=== PATIENT | male | born 1990 | race Caucasian/White ===

== ENCOUNTER 2018-03-13 07:25 | Emergency (ER) | payer OTHER, SELFPAY ==
--- NOTE | 2018-03-13 07:30 | ED_ITS ---
HPI - Back Pain/Injury General Chief Complaint: Back Pain/Injury Stated Complaint: BACK INJURY/RIB PAIN Time Seen by Provider: 03/13/18 07:29 Source: patient Mode of arrival: ambulatory Limitations: no limitations History of Present Illness HPI Narrative: Patient is a 27-year-old male here for evaluation of right-sided mid back/flank pain. He states that he thinks that it occurred last evening when he fell and hit his right side on the edge of the couch. He states he was drinking at the time. He arrives this morning with pain to his right flank. Related Data Home Medications Medication Instructions Recorded Confirmed [DAYQUIL] PO PRN PRN #0 05/21/17 Previous Rx's Medication Instructions Recorded oseltamivir [Tamiflu] 75 mg PO BID #9 cap 05/21/17 Allergies Allergy/AdvReac Type Severity Reaction Status Date / Time No Known Drug Allergies Allergy Verified 03/13/18 07:38 Review of Systems Constitutional Denies fever(s) and Denies frequent falls ENT Ears, Nose, Mouth, and Throat: Denies vertigo Cardiovascular Reports chest pain (Right-sided lower chest) and Denies dyspnea Respiratory Denies dyspnea Musculoskeletal Reports back pain (Right midback), Denies myalgias, Denies deformity and Denies arthralgias Integumentary/Breasts Denies rash Neurologic Denies vertigo and Denies frequent falls Hematologic/Lymphatic Denies easy bleeding and Denies easy bruising PFSH Medical History Healthy adult (Acute) Surgical History No pertinent past surgical history (Acute) Social History lives independently: Yes Smoking Status: Current every day smoker Exam Initial Vital Signs Initial Vital Signs: Vital Signs Temperature 98.6 F 03/13/18 07:34 Pulse Rate 96 H 03/13/18 07:34 Respiratory Rate 18 03/13/18 07:34 Blood Pressure 124/81 03/13/18 07:34 Pulse Oximetry 99 03/13/18 07:34 Const General: cooperative, well developed, well groomed and No acute distress Orientation: alert, awake and oriented x3 HENMT Head: normal to inspection and normocephalic Resp Effort & Inspection: normal respiratory effort Auscultation: clear to auscultation bilaterally Cardio Rate: regular rate Rhythm: regular rhythm GI Inspection: non-distended Palpation: soft, No firm and No tender Back/Spine/Pelvis Other: Patient with tenderness to palpation over the right lower ribs post posteriorly and along the right flank anterior. No crepitus felt. Skin Lesions: no lesions Rashes: no rashes Neuro General: alert, awake and oriented x3 Extrem General: normal to inspection, capillary refill normal and No no pedal edema Right upper extremity: normal to inspection Psych Appearance: grossly normal and well kempt Course Orders Ordered: ED Orders 03/13/18 07:37 XR ribs RT min 3V w CXR1V Stat Vital Signs - 8 hr 03/13/18 07:34 Temperature 98.6 F Pulse Rate 96 H Respiratory Rate 18 Blood Pressure 124/81 Pulse Oximetry 99 MDM - Back Pain/Injury Imaging Data Rib series: Radiologist's impression: PROCEDURE: XR RIBS RT MIN 3V W CXR 1V INDICATIONS: Right-sided rib pain after injury last evening TECHNIQUE: 2 views of the right ribs were acquired, along with a single view chest. COMPARISON: None. FINDINGS: Surgical changes and devices: None. Bones and chest wall: No fractures or dislocations. No suspicious bony lesions. Overlying soft tissues appear unremarkable. Lungs and pleura: No pleural effusions or pneumothorax. Lungs appear clear. Mediastinum: Mediastinal contours appear normal. Heart size is normal. IMPRESSION: No acute fracture. No osseous lesion. If clinical suspicion and/or symptoms persist, further assessment with repeat plainfilms, or advanced imaging (e.g., CT or bone scan) may be helpful for further assessment. Dictated by: Natan Le M.D. on 03/13/2018 at 8:29 Approved by: Natan Le M.D. on 03/13/2018 at 8:30 [facility] Narrative Medical decision making narrative: Patient without respiratory distress. Did admit to drinking last evening. No fractures were noted on the x-ray. Discussed treatment to include Tylenol and Motrin. Offered a work note for today but patient did not want this. He was asking for a work note for the next several days and did next week. I informed him he needed to contact his primary care doctor for this. He was given return precautions. He expressed understanding. Discharge Plan Departure Patient Disposition: Home Clinical Impression: Contusion of rib on right side Instructions: DI for Rib Contusion, How To Perform RICE (Rest, Ice, Compress, Elevate) Activity Restrictions/Additional Instructions: I recommend that you take anti-inflammatories such as Motrin/ibuprofen or Naprosyn. You can also take Tylenol in addition to this. There were no fractures noted on the x-rays today. Return to the emergency department for any fevers, problems breathing or any other new symptoms. Prescriptions: No Action [DAYQUIL] PO PRN PRNQty: 0 RF: 0 oseltamivir [Tamiflu] 75 MG capsule 75 mg PO BID Qty: 9 RF: 0
[2018-03-13 07:34] VITALS: BP 124/81; PULSE 96; RESP 18; TEMP 37; O2SAT 99
--- NOTE | 2018-03-13 07:37 | DI.RAD.S_ITS ---
PROCEDURE: XR RIBS RT MIN 3V W CXR 1V INDICATIONS: Right-sided rib pain after injury last evening TECHNIQUE: 2 views of the right ribs were acquired, along with a single view chest. COMPARISON: None. FINDINGS: Surgical changes and devices: None. Bones and chest wall: No fractures or dislocations. No suspicious bony lesions. Overlying soft tissues appear unremarkable. Lungs and pleura: No pleural effusions or pneumothorax. Lungs appear clear. Mediastinum: Mediastinal contours appear normal. Heart size is normal. IMPRESSION: No acute fracture. No osseous lesion. If clinical suspicion and/or symptoms persist, further assessment with repeat plainfilms, or advanced imaging (e.g., CT or bone scan) may be helpful for further assessment. Dictated by: Natan Le M.D. on 03/13/2018 at 8:29 Approved by: Natan Le M.D. on 03/13/2018 at 8:30
[2018-03-13 08:56] VITALS: BP 117/85; PULSE 76; RESP 16; O2SAT 97
== END 2018-03-13 08:56 | disposition home or self-care (01) ==
PROVIDERS: Emergency Provider Emergency Medicine
DX: S20.211A Contusion of right front wall of thorax, initial encounter (principal); W18.30XA Fall on same level, unspecified, initial encounter
CPT/HCPCS: 71101; 99282; 99283

== ENCOUNTER 2023-12-22 12:57 | Emergency (ER) | payer OTHER, MEDICAID, SELFPAY ==
[2023-12-22 13:11] VITALS: BP 137/85; PULSE 98; RESP 16; TEMP 37.2; O2SAT 98; BMI 27.8
--- NOTE | 2023-12-22 13:19 | ED.SKABFB ---
HPI - Skin/Abscess/Foreign Bdy <Jose D Osborne PA-C - Last Filed: 12/22/23 16:41> General Chief complaint: Skin/Abscess/Foreign Body Stated complaint: abcess on left arm Time Seen by Provider: 12/22/23 13:12 Source: patient Mode of arrival: Ambulatory Limitations: no limitations History of Present Illness HPI narrative: 33-year-old male who is an IVDU presents to the ED with an abscess in the left antecubital fossa. Patient states he was injecting methamphetamine a few days ago, following which the wound developed. Patient states that he has had this happened before, however it spontaneously resolved. Patient denies that there is any possibility of a needle left behind in the wound. No fever, chills, nausea, vomiting. Related Data Home Medications Medication Instructions Recorded Confirmed [DAYQUIL] PO PRN PRN ##0 05/21/17 Previous Rx's Medication Instructions Recorded oseltamivir 75 mg capsule (Tamiflu) 75 mg PO BID #9 caps 05/21/17 cephalexin 500 mg capsule 500 mg PO TID 5 days #15 caps 12/22/23 sulfamethoxazole 800 1 tab PO Q12H 10 days #20 tabs 12/22/23 mg-trimethoprim 160 mg tablet (Bactrim DS) Allergies Allergy/AdvReac Type Severity Reaction Status Date / Time No Known Drug Allergies Allergy Verified 12/22/23 13:14 Review of Systems <Jose D Osborne PA-C - Last Filed: 12/22/23 16:41> Constitutional Constitutional: Denies chills, Denies fatigue, Denies fever(s), Denies frequent falls, Denies lethargy and Denies weakness Eyes Eyes: Denies change in vision, Denies eye discharge, Denies irritation and Denies loss of vision ENT Ears, Nose, Mouth, and Throat: Denies change in voice, Denies dizziness, Denies neck pain, Denies sore throat and Denies throat swelling Cardiovascular Cardiovascular: Denies chest pain, Denies irregular heart rhythm, Denies lightheadedness, Denies palpitations, Denies dyspnea, Denies dyspnea on exertion and Denies orthopnea Respiratory Respiratory: Denies cough, Denies dyspnea, Denies dyspnea on exertion and Denies wheezing Gastrointestinal Gastrointestinal: Denies abdominal pain, Denies change in bowel habits, Denies diarrhea, Denies nausea and Denies vomiting Musculoskeletal Musculoskeletal: Denies neck pain and Denies numbness Integumentary/Breasts Skin/Breast: Denies pruritus, Denies erythema, Denies rash and Reports wounds Neurologic Neurologic: Denies behavioral changes, Denies confusion, Denies dizziness, Denies frequent falls, Denies loss of vision, Denies numbness and Denies weakness Psychiatric Psychiatric: Denies anxiety, Denies behavioral changes, Denies confusion, Denies depression, Denies homicidal ideation and Denies suicidal ideation Endocrine Endocrine: Denies fatigue, Denies flushing and Denies palpitations Hematologic/Lymphatic Hematologic/Lymphatic: Denies easy bruising Allergic/Immunologic Allergic/Immunologic: Denies urticaria, Denies throat swelling and Denies wheezing Patient History <Jose D Osborne PA-C - Last Filed: 12/22/23 16:41> Medical History Healthy adult Surgical History No pertinent past surgical history Social History lives independently: Yes Smoking Status: Current every day smoker Smoking Status: Current every day smoker tobacco type: vaping alcohol intake frequency: 0-2 drinks per day Substance Use Type: marijuana and methamphetamine Exam <Jose D Osborne PA-C - Last Filed: 12/22/23 16:41> Narrative Exam Narrative: Const General:?cooperative, healthy appearing and comfortable [facility] Head:?normal to inspection Ears:?hearing grossly normal bilaterally Nose:?external nose normal Face and sinus:?normal facial exam and sinuses nontender Mouth:?oral mucosae normal Throat:?posterior oropharynx normal Eyes General:?appearance normal, both eyes and all related structures Neck Neck:?normal visual inspection and no lymphadenopathy noted Resp Effort & Inspection:?normal respiratory effort Auscultation:?clear to auscultation bilaterally Cardio Rate:?regular rate Rhythm:?regular rhythm Integumentary There is a 8 cm circular lesion proximal to the left antecubital fossa, with induration and fluctuance, tenderness, erythema. Consistent with an abscess. FROM. Neurovascularly intact. Neuro General:?patient alert, patient awake and patient oriented x3 Initial Vital Signs Initial Vital Signs: Vital Signs Temperature 99 F 12/22/23 13:11 Pulse Rate 98 H 12/22/23 13:11 Respiratory Rate 16 12/22/23 13:11 Blood Pressure 137/85 12/22/23 13:11 Pulse Oximetry 98 12/22/23 13:11 Oxygen Delivery Method Room Air 12/22/23 13:11 <DO Tara Engel Last Filed: 12/22/23 18:21> Initial Vital Signs Initial Vital Signs: Vital Signs Temperature 99 F 12/22/23 13:11 Pulse Rate 98 H 12/22/23 13:11 Respiratory Rate 16 12/22/23 13:11 Blood Pressure 137/85 12/22/23 13:11 Pulse Oximetry 98 12/22/23 13:11 Oxygen Delivery Method Room Air 12/22/23 13:11 Procedures <Jose D Osborne PA-C - Last Filed: 12/22/23 16:41> Abscess I/D I&D #1: Site: upper extremity Side (if applicable): left Local Anesthetic: lidocaine 1% and with epi Amount of anesthesia used (mL): 3 Technique: incised with #11 blade Packing used?: iodoform Course <Jose D Osborne PA-C - Last Filed: 12/22/23 16:41> Orders Ordered: ED Orders 12/22/23 13:26 CT UE LT w con Stat 12/22/23 13:35 CBC Auto Diff [Complete Blood Count AUTO DIFF] Stat CMP [Comprehensive Metabolic Panel] Stat Vital Signs Vital signs: Vital Signs - 8 hr 12/22/23 13:11 12/22/23 16:01 Temperature 99 F Pulse Rate 98 H 66 Respiratory Rate 16 18 Blood Pressure 137/85 116/63 Pulse Oximetry 98 100 Oxygen Delivery Method Room Air Room Air <Ynes Wilson DO - Last Filed: 12/22/23 18:21> Orders Ordered: ED Orders 12/22/23 13:26 CT UE LT w con Stat 12/22/23 13:35 CBC Auto Diff [Complete Blood Count AUTO DIFF] Stat CMP [Comprehensive Metabolic Panel] Stat Vital Signs Vital signs: Vital Signs - 8 hr 12/22/23 13:11 12/22/23 16:01 Temperature 99 F Pulse Rate 98 H 66 Respiratory Rate 16 18 Blood Pressure 137/85 116/63 Pulse Oximetry 98 100 Oxygen Delivery Method Room Air Room Air MDM - Skin/Abscess/Foreign Bdy <Jose D Osborne PA-C - Last Filed: 12/22/23 16:41> Lab Data 12/22/23 13:35 12/22/23 13:35 Labs: Lab Results 12/22/23 Range/Units 13:35 WBC 6.2 (4.5-11.0) X10^3/uL RBC 4.27 L (4.5-5.9) X10^6/uL Hgb 12.6 L (13.5-17.5) g/dL Hct 36.6 L (41-53) % MCV 85.8 (80-100) fL MCH 29.5 (26-34) PG MCHC 34.4 (30-36) % RDW 13.3 (11.6-14.8) % Plt Count 183 (150-400) X10^3/uL Neut % (Auto) 65.6 (50-75) % Lymph % (Auto) 16.3 L (25-40) % [place] % (Auto) 9.5 (3-14) % Eos % (Auto) 7.8 H (2-4) % Baso % (Auto) 0.8 (0-2) % Neut # (Auto) 4100 (6022-7826) /uL Lymph # (Auto) 1000 L (3658-3033) /uL [place] # (Auto) 600 (0-900) /uL Eos # (Auto) 500 H (0-450) /uL Baso # (Auto) 0 (0-100) /uL Sodium 139 (137-145) mmol/L Potassium 4.0 (3.4-5.1) mmol/L Chloride 107 (98-107) mmol/L Carbon Dioxide 25 (22-32) mmol/L BUN 14 (9-20) mg/dL Creatinine 0.79 (0.66-1.25) mg/dL Estimated GFR > 60 (>60) mL/min BUN/Creatinine Ratio 17.7 (6-22) Glucose 78 (70-100) mg/dL Calcium 9.4 (8.4-10.2) mg/dL Total Bilirubin 0.5 (0.2-1.3) mg/dL AST 27 (17-59) IU/L ALT 23 (<50) IU/L Alkaline Phosphatase 66 (38-126) U/L Total Protein 7.3 (6.3-8.2) g/dL Albumin 4.2 (3.5-5.0) g/dL Globulin 3.1 (1.7-4.1) g/dL Albumin/Globulin Ratio 1.4 (1.0-2.8) MDM Narrative Medical decision making narrative: 33-year-old male who is an IVDU presents to the ED with an abscess in the left antecubital fossa. Concern for abscess versus retained foreign body versus other. Will obtain labs, CT. Will reassess. Labs unremarkable. CT shows moderate focal edema in the antecubital fossa subcutaneous region measuring 3.2 cm. No definite metallic foreign body. No osseous erosion. There is some enema seen around the adjacent wanes, without definite occluding thrombus. Abscess incised and drained, packed with iodoform packing. Recommend follow-up with PCP/walk-in clinic/ED in 24-48 hours for recheck and further treatment. Antibiotics prescribed. ED return precautions were discussed with patient. Patient verbalized understanding. Medical records reviewed: Yes <Ynes Wilson, - Last Filed: 12/22/23 18:21> Lab Data Labs: Lab Results 12/22/23 Range/Units 13:35 WBC 6.2 (4.5-11.0) X10^3/uL RBC 4.27 L (4.5-5.9) X10^6/uL Hgb 12.6 L (13.5-17.5) g/dL Hct 36.6 L (41-53) % MCV 85.8 (80-100) fL MCH 29.5 (26-34) PG MCHC 34.4 (30-36) % RDW 13.3 (11.6-14.8) % Plt Count 183 (150-400) X10^3/uL Neut % (Auto) 65.6 (50-75) % Lymph % (Auto) 16.3 L (25-40) % [place] % (Auto) 9.5 (3-14) % Eos % (Auto) 7.8 H (2-4) % Baso % (Auto) 0.8 (0-2) % Neut # (Auto) 4100 (1558-4669) /uL Lymph # (Auto) 1000 L (1363-5428) /uL [place] # (Auto) 600 (0-900) /uL Eos # (Auto) 500 H (0-450) /uL Baso # (Auto) 0 (0-100) /uL Sodium 139 (137-145) mmol/L Potassium 4.0 (3.4-5.1) mmol/L Chloride 107 (98-107) mmol/L Carbon Dioxide 25 (22-32) mmol/L BUN 14 (9-20) mg/dL Creatinine 0.79 (0.66-1.25) mg/dL Estimated GFR > 60 (>60) mL/min BUN/Creatinine Ratio 17.7 (6-22) Glucose 78 (70-100) mg/dL Calcium 9.4 (8.4-10.2) mg/dL Total Bilirubin 0.5 (0.2-1.3) mg/dL AST 27 (17-59) IU/L ALT 23 (<50) IU/L Alkaline Phosphatase 66 (38-126) U/L Total Protein 7.3 (6.3-8.2) g/dL Albumin 4.2 (3.5-5.0) g/dL Globulin 3.1 (1.7-4.1) g/dL Albumin/Globulin Ratio 1.4 (1.0-2.8) Discharge Plan Departure Patient Disposition: Home Clinical Impression: Abscess Instructions: DI for Incision and Drainage of a Skin Abscess Activity Restrictions/Additional Instructions: You were evaluated in the ED today for an abscess in your left arm. Your abscess was incised and drained. A wick has been left in to aid continued draining of pus. It is important that you follow-up at a walk-in clinic, your PCP's office or return to the ED for a recheck in 24-48 hours and possible replacement of the week if your abscess is still draining. You have been prescribed antibiotics. Please take those as prescribed. Please refrain from further injection use to avoid further infections. Return to the ED if you have worsening symptoms, fever, chills, persistent vomiting. Prescriptions: New sulfamethoxazole-trimethoprim [Bactrim DS] 800-160 mg tablet 1 tab PO Q12H 10 Days Qty: 20 0RF cephalexin 500 mg capsule 500 mg PO TID 5 Days Qty: 15 0RF No Action [DAYQUIL] PO PRN PRNQty: 0 oseltamivir [Tamiflu] 75 MG capsule 75 mg PO BID Qty: 9 0RF Referrals: Miscellaneous,Doctor, MD [Primary Care Provider] - Stand Alone Forms: Patient Portal/API ED Sign-out <Ynes Wilson DO - Last Filed: 12/22/23 18:21> Cosign ED Attending Cosxaviature Attestation: I was immediately available in the department for consultation.
--- NOTE | 2023-12-22 13:26 | DI.CT.S_ITS ---
PROCEDURE: CT UE LT W CON INDICATIONS: AC abscess; ivdu; ?foreign body TECHNIQUE: After the administration of intravenous contrast, 3 mm axial sections acquired of the left upper extremity , with coronal and sagittal reformats. COMPARISON: None. FINDINGS: Image quality: Diagnostic Bones: No acute displaced fracture. No definite osseous erosions Soft tissues: Moderate focal edema measuring about 3.2 centimeters in the antecubital fossa. This is subcutaneous. Some edema is seen around the adjacent veins, without a definite occluding thrombus. There is no metallic body identified. Prominent adjacent lymph nodes may be reactive. IMPRESSION: Moderate focal edema in the antecubital fossa subcutaneous region measuring 3.2 centimeters. No definite metallic foreign body. No osseous erosion. Consider ultrasound if there is concern for superficial thrombophlebitis. Dictated by: Slade Mcclelland M.D. on 12/22/2023 at 14:54 Approved by: Slade Mcclelland M.D. on 12/22/2023 at 14:58
[2023-12-22 13:49] LABS: Add Manual Diff / Slide Review NO; Basophils Absolute Auto 0 /uL (0-100); Basophils Percent Auto 0.8 % (0-2); Eosinophils Absolute Auto 500 /uL (0-450); Eosinophils Percent Auto 7.8 % (2-4); Hematocrit 36.6 % (41-53); Hemoglobin 12.6 g/dL (13.5-17.5); Lymphocytes Absolute Auto 1000 /uL (1100-4500); Lymphocytes Percent Auto 16.3 % (25-40); Mean Corpuscular HGB Conc 34.4 % (30-36); Mean Corpuscular Hemoglobin 29.5 PG (26-34); Mean Corpuscular Volume 85.8 fL (80-100); Monocytes Absolute Auto 600 /uL (0-900); Monocytes Percent Auto 9.5 % (3-14); Neutrophils Absolute Auto 4100 /uL (1500-7000); Neutrophils Percent Auto 65.6 % (50-75); Platelet Count 183 X10^3/uL (150-400); Red Blood Cell Count 4.27 X10^6/uL (4.5-5.9); Red Cell Distribution Width 13.3 % (11.6-14.8); White Blood Cell Count 6.2 X10^3/uL (4.5-11.0)
[2023-12-22 14:04] LABS: Alanine Aminotransferase 23 IU/L (<50); Albumin 4.2 g/dL (3.5-5.0); Albumin Globulin Ratio 1.4 (1.0-2.8); Alkaline Phosphatase 66 U/L (38-126); Aspartate Aminotransferase 27 IU/L (17-59); BUN Creatinine Ratio 17.7 (6-22); Bilirubin Total 0.5 mg/dL (0.2-1.3); Blood Urea Nitrogen 14 mg/dL (9-20); Calcium 9.4 mg/dL (8.4-10.2); Carbon Dioxide 25 mmol/L (22-32); Chloride 107 mmol/L (98-107); Estimated Glomerular Filt Rate > 60 mL/min (>60); Globulin 3.1 g/dL (1.7-4.1); Glucose 78 mg/dL (70-100); HEMOLYSIS < 15 (0-50); Sodium 139 mmol/L (137-145); Total Protein 7.3 g/dL (6.3-8.2)
[2023-12-22 16:01] VITALS: BP 116/63; PULSE 66; RESP 18; O2SAT 100
== END 2023-12-22 16:14 | disposition home or self-care (01) ==
PROVIDERS: Emergency Provider Student in an Organized Health Care Education/Training Program
DX: L02.414 Cutaneous abscess of left upper limb (principal); R79.89 Other specified abnormal findings of blood chemistry
CPT/HCPCS: 10060; 36415; 73201; 80053; 85025; 99284; Q9967

== ENCOUNTER 2024-02-19 12:57 | Emergency (ER) | payer OTHER, MEDICAID, SELFPAY ==
--- NOTE | 2024-02-19 13:09 | DI.RAD.S_ITS ---
PROCEDURE: XR CHEST 2V INDICATIONS: cough TECHNIQUE: 2 views of the chest were acquired. COMPARISON: CR, XR RIBS RT MIN 3V W CXR 1V, 03/13/2018, 7:44. FINDINGS: Surgical changes and devices: None. Lungs and pleura: Lungs are abnormal with a patchy alveolar infiltration pattern but without dense consolidative pneumonia. No pleural effusions or pneumothorax. Mediastinum: Mediastinal contours are normal. Heart size is normal. Bones and chest wall: No suspicious bony abnormalities. Soft tissues appear unremarkable. IMPRESSION: Patchy bilateral alveolar infiltration pattern, potentially a manifestation of atypical/viral pneumonia. Dictated by: Felipe Godoy M.D. on 02/19/2024 at 13:48 Approved by: Felipe Godoy M.D. on 02/19/2024 at 13:49
[2024-02-19 13:14] VITALS: BP 128/76; PULSE 96; RESP 16; TEMP 36.6; O2SAT 94; BMI 28.7
--- NOTE | 2024-02-19 13:51 | ED.URI ---
HPI - URI/Sore Throat <Paola Rivers PA-C - Last Filed: 02/19/24 15:44> General Chief Complaint: Upper Respiratory Symptoms Stated Complaint: headache, hearing problem, green phlem Time Seen by Provider: 02/19/24 13:27 Source: patient Mode of arrival: Ambulatory History of Present Illness HPI Narrative: Mr. You is a pleasant 33-year-old male on methadone who presents to the emergency department for cough, sinus pressure, bilateral ear pain x1 week. Patient reports he has been sick with an upper respiratory infection for the last week and it is not getting better. Denies fever. Reports the sensation of pressure in his face and his ears. States he has an extremely productive cough with green sputum. Denies abdominal pain, vomiting, shortness of breath, sore throat. Denies smoking or asthma. Related Data Home Medications Medication Instructions Recorded Confirmed [DAYQUIL] PO PRN PRN ##0 05/21/17 Previous Rx's Medication Instructions Recorded amoxicillin 875 mg-potassium 1 tab PO BID 10 days #20 tabs 02/19/24 clavulanate 125 mg tablet doxycycline hyclate 100 mg capsule 100 mg PO BID 5 days #10 caps 02/19/24 Allergies Allergy/AdvReac Type Severity Reaction Status Date / Time No Known Drug Allergies Allergy Verified 02/19/24 13:18 Review of Systems <Paola Rivers PA-C - Last Filed: 02/19/24 15:44> Constitutional Constitutional: Denies chills, Denies fever(s) and Denies weakness Eyes Eyes: Denies change in vision ENT Ears, Nose, Mouth, and Throat: Denies change in voice, Denies neck pain, Denies sore throat and Denies throat swelling Cardiovascular Cardiovascular: Denies chest pain and Denies irregular heart rhythm Respiratory Respiratory: Reports change in phlegm color, Reports cough and Denies wheezing Gastrointestinal Gastrointestinal: Denies abdominal pain Musculoskeletal Musculoskeletal: Denies neck pain Integumentary/Breasts Skin/Breast: Denies rash and Denies wounds Neurologic Neurologic: Denies weakness Allergic/Immunologic Allergic/Immunologic: Denies throat swelling and Denies wheezing Patient History <Paola Rivers PA-C - Last Filed: 02/19/24 15:44> Medical History Healthy adult Surgical History No pertinent past surgical history Social History lives independently: Yes Smoking Status: Current every day smoker Smoking Status: Current every day smoker tobacco type: vaping alcohol intake frequency: 0-2 drinks per day Substance Use Type: marijuana and methamphetamine Exam <Paola Rivers PA-C - Last Filed: 02/19/24 15:44> Initial Vital Signs Initial Vital Signs: Vital Signs Temperature 98 F 02/19/24 13:14 Pulse Rate 96 H 02/19/24 13:14 Respiratory Rate 16 02/19/24 13:14 Blood Pressure 128/76 02/19/24 13:14 Pulse Oximetry 94 02/19/24 13:14 Oxygen Delivery Method Room Air 02/19/24 13:14 Const General: cooperative HENMT Head: normocephalic Ears: external ears normal, TM normal on the left and other (Right cerumen impaction) Face and sinus: sinus tenderness Eyes Conjunctivae: conjunctivae normal Resp Effort & Inspection: able to speak in complete sentences, no respiratory distress and no use of accessory muscles Other: Diffuse mild expiratory coarse breath sounds. Cardio Rate: regular rate Rhythm: regular rhythm GI Inspection: non-distended Skin General: no rashes or lesions noted Neuro General: patient alert and patient oriented x3 Extrem General: full ROM Psych Attitude: cooperative <Kari Lee DO - Last Filed: 02/20/24 08:14> Initial Vital Signs Initial Vital Signs: Vital Signs Temperature 98 F 02/19/24 13:14 Pulse Rate 96 H 02/19/24 13:14 Respiratory Rate 16 02/19/24 13:14 Blood Pressure 128/76 02/19/24 13:14 Pulse Oximetry 94 02/19/24 13:14 Oxygen Delivery Method Room Air 02/19/24 13:14 Course <Paola Rivers PA-C - Last Filed: 02/19/24 15:44> Course Course Narrative: Curette used to partially remove right cerumen impaction. Right TM partially visualized with no abnormalities. Patient deferred complete removal due to discomfort. Orders Ordered: ED Orders 02/19/24 13:09 Chest [XR chest 2V] Stat 02/19/24 13:43 Respiratory Panel (Film Array) Stat Vital Signs Vital signs: Vital Signs - 8 hr 02/19/24 13:14 02/19/24 14:55 Temperature 98 F 98.7 F Pulse Rate 96 H 72 Respiratory Rate 16 20 Blood Pressure 128/76 128/80 Pulse Oximetry 94 100 Oxygen Delivery Method Room Air Room Air <Kari Lee DO - Last Filed: 02/20/24 08:14> Orders Ordered: ED Orders 02/19/24 13:09 Chest [XR chest 2V] Stat 02/19/24 13:43 Respiratory Panel (Film Array) Stat Vital Signs Vital signs: Vital Signs - 8 hr 02/19/24 13:14 02/19/24 14:55 Temperature 98 F 98.7 F Pulse Rate 96 H 72 Respiratory Rate 16 20 Blood Pressure 128/76 128/80 Pulse Oximetry 94 100 Oxygen Delivery Method Room Air Room Air MDM - URI/Sore Throat <Paola Rivers PA-C - Last Filed: 02/19/24 15:44> Lab Data Attestation: I reviewed the patient's lab results. Labs: Lab Results 02/19/24 Range/Units 13:43 Chlamy pneumoniae PCR Not detected (Not Detect) Adenovirus (PCR) Not detected (Not Detect) B. pertussis DNA (PCR) Not detected (Not Detect) B.parapertussis DNA PCR Not detected (Not Detecte) Coronavirus OC43 (PCR) Not detected (Not Detect) Coronavirus HKU1 (PCR) Not detected (Not Detect) Coronavirus 229E (PCR) Not detected (Not Detect) SARS-CoV-2 (PCR) Not detected (Not Detecte) Coronavirus NL63 (PCR) Not detected (Not Detect) Human Metapneumovir PCR Not detected (Not Detect) Influenza Type A (PCR) Not detected (Not Detect) Influenza Type B (PCR) Not detected (Not Detect) M. pneumoniae (PCR) Not detected (Not Detect) Parainfluenza 1 (PCR) Not detected (Not Detect) Parainfluenza 2 (PCR) Not detected (Not Detect) Parainfluenza 3 (PCR) Not detected (Not Detect) Parainfluenza 4 (PCR) Not detected (Not Detect) RSV (PCR) Not detected (Not Detect) Entero/Rhino (PCR) Detected H (Not Detect) Imaging Data Chest x-ray: My Impression: Agree with radiologist's impression as documented. Radiologist's Impression: IMPRESSION: Patchy bilateral alveolar infiltration pattern, potentially a manifestation of atypical/viral pneumonia. [facility] Narrative Medical decision making narrative: Mr. You is a pleasant 33-year-old male on methadone who presents to the emergency department for cough, sinus pressure, bilateral ear pain x1 week. Differential diagnosis includes but is not limited to sinusitis, pneumonia, viral URI, acute otitis media, acute otitis externa, cerumen impaction, etc.. On exam patient is in no acute distress, nontoxic appearing, vital signs within normal limits. On lung auscultation he has mild diffuse expiratory coarse lung sounds concerning for pneumonia and maxillary sinus tenderness. We will proceed with a chest x-ray and viral swab. Workup reveals chest x-ray concerning for pneumonia in addition to positive rhino virus. Due to patient's history of substance use, we will treat for both pneumonia and sinusitis with Augmentin b.i.d. times 10 days and doxycycline b.i.d. x5 days. Discussed strict return precautions with the patient and advised prompt PCP follow-up. He verbalized understanding of all information stable for discharge at this time. <Kari Lee, DO - Last Filed: 02/20/24 08:14> Lab Data Labs: Lab Results 02/19/24 Range/Units 13:43 Chlamy pneumoniae PCR Not detected (Not Detect) Adenovirus (PCR) Not detected (Not Detect) B. pertussis DNA (PCR) Not detected (Not Detect) B.parapertussis DNA PCR Not detected (Not Detecte) Coronavirus OC43 (PCR) Not detected (Not Detect) Coronavirus HKU1 (PCR) Not detected (Not Detect) Coronavirus 229E (PCR) Not detected (Not Detect) SARS-CoV-2 (PCR) Not detected (Not Detecte) Coronavirus NL63 (PCR) Not detected (Not Detect) Human Metapneumovir PCR Not detected (Not Detect) Influenza Type A (PCR) Not detected (Not Detect) Influenza Type B (PCR) Not detected (Not Detect) M. pneumoniae (PCR) Not detected (Not Detect) Parainfluenza 1 (PCR) Not detected (Not Detect) Parainfluenza 2 (PCR) Not detected (Not Detect) Parainfluenza 3 (PCR) Not detected (Not Detect) Parainfluenza 4 (PCR) Not detected (Not Detect) RSV (PCR) Not detected (Not Detect) Entero/Rhino (PCR) Detected H (Not Detect) Discharge Plan Departure Patient Disposition: Home Clinical Impression: Pneumonia Qualifiers: Pneumonia type: due to unspecified organism Laterality: bilateral Lung location: unspecified part of lung Qualified Code(s): J18.9 - Pneumonia, unspecified organism Sinusitis Qualifiers: Sinusitis location: unspecified location Chronicity: acute Recurrence: non-recurrent Qualified Code(s): J01.90 - Acute sinusitis, unspecified Instructions: DI for Pneumonia -- Adult Activity Restrictions/Additional Instructions: Today you are being treated for pneumonia which is a lung infection and a sinus infection. It is extremely important to complete the full course of both antibiotics. Please rest and hydrate. You may use [id number] Debrox drops in the right ear for ear wax build up. You also tested positive for a common cold virus. Return to the emergency department if you develop any difficulty breathing, new or worsening symptoms or any other concerns. Prescriptions: New amoxicillin-pot clavulanate 875-125 mg tablet 1 tab PO BID 10 Days Qty: 20 0RF doxycycline hyclate 100 mg capsule 100 mg PO BID 5 Days Qty: 10 0RF No Action [DAYQUIL] PO PRN PRNQty: 0 Referrals: Miscellaneous,Doctor, MD [Primary Care Provider] - Stand Alone Forms: Patient Portal/API/Survey ED Sign-out <Kari Lee DO - Last Filed: 02/20/24 08:14> Cosign ED Attending Cosxaviature Attestation: I was available for consultation.
[2024-02-19 14:36] LABS: Adenovirus Not Detected (Not Detect); B. parapertussis Not Detected (Not Detecte); Bordetella pertussis Not Detected (Not Detect); Chlamydophila pneumoniae Not Detected (Not Detect); Coronavirus 229E Not Detected (Not Detect); Coronavirus HKU1 Not Detected (Not Detect); Coronavirus NL 63 Not Detected (Not Detect); Coronavirus OC43 Not Detected (Not Detect); Human Metapneumovirus Not Detected (Not Detect); Human Rhinovirus/Enterovirus Detected (Not Detect); Influenza A Not Detected (Not Detect); Influenza B Not Detected (Not Detect); Mycoplasma pneumoniae Not Detected (Not Detect); Parainfluenza Virus 1 Not Detected (Not Detect); Parainfluenza Virus 2 Not Detected (Not Detect); Parainfluenza Virus 3 Not Detected (Not Detect); Parainfluenza Virus 4 Not Detected (Not Detect); Respiratory Syncytial Virus Not Detected (Not Detect); SARS- CoV-2 Not Detected (Not Detecte)
[2024-02-19 14:55] VITALS: BP 128/80; PULSE 72; RESP 20; TEMP 37.1; O2SAT 100
== END 2024-02-19 14:56 | disposition home or self-care (01) ==
PROVIDERS: Emergency Provider Physician Assistant
DX: J18.9 Pneumonia, unspecified organism (principal); J01.90 Acute sinusitis, unspecified; B34.8 Other viral infections of unspecified site; Z11.52 Encounter for screening for COVID-19
CPT/HCPCS: 71046; 87633; 99281; 99283